=== PATIENT | male | born 1975 | race Caucasian/White ===

== ENCOUNTER 2016-10-01 08:20 | Emergency (ER) | payer OTHER ==
--- NOTE | ~2016-10-01 | CR243 ---
[facility] A Service of [facility] RADIOLOGY TEXT RESULTS PATIENT: RICHARD ANGEL LOCATION: [facility] : 79 UNIT #: [id number] AGE: [address]: Sayda Hernandez SEX: M ORDER DR: [id number] [facility] [address] [place], [place] [address] [id number] E MR#: [id number] Acc #: [id number] NAME: RICHARD ANGEL : 1975 SEX: M STUDY DATE/TIME: 10/01/2016 09:28 UNIT: [facility] ROOM: STUDY DESCRIPTION: CR Thoracic Spine 3 Views Attending Physician: Sayda Hernandez P.A.-C. Ordering Physician: Sayda Hernandez P.A.-C. Primary Care Physician: No Primary Care Physician MEDICAL IMAGING REPORT This report is preliminary unless electronic signature is present EXAM Thoracic spine series 10/01/2016 0928 hours CLINICAL HISTORY Patient complains of right-sided mid back pain since yesterday after lifting a box. COMPARISON None. FINDINGS AP and lateral views of the thoracic spine and a lateral swimmer's view of the cervical thoracic junction were performed. There is very mild rightward scoliosis in the mid thoracic spine with Brown angle of 10 degrees as measured from the superior endplate of T4 to the inferior endplate of T8. There is very minimal endplate spurring in the lower thoracic spine. There is no compression fracture or paraspinous hematoma. IMPRESSION There is mild rightward scoliosis in the mid thoracic spine with Brown angle of 10 degrees. There is mild endplate degenerative change in the lower thoracic spine. There is no fracture or subluxation. Dictated by... Diane Case M.D. THIS IS AN ELECTRONICALLY VERIFIED REPORT Diane Case M.D. at 10/01/2016 2:31 PM Liset TD: 10/01/2016 11:31 JOB #: [id number] [facility] A Service of [facility] RADIOLOGY TEXT RESULTS PATIENT: RICHARD ANGEL LOCATION: [facility] #: [id number] : 79 UNIT #: [id number] AGE: [address]: Sayda Hernandez SEX: M ORDER DR: MEDICAL IMAGING REPORT Page 1 of 1 COPY
== END 2016-10-01 10:08 | disposition home or self-care (01) ==
LOC: CED 08:20
DX: S23.3XXA Sprain of ligaments of thoracic spine, initial encounter (principal); F17.210 Nicotine dependence, cigarettes, uncomplicated; X50.9XXA Other and unspecified overexertion or strenuous movements or postures, initial encounter; Y93.89 Activity, other specified; Y92.69 Other specified industrial and construction area as the place of occurrence of the external cause; Y99.0 Civilian activity done for income or pay
CPT/HCPCS: 72072; 96372; 99283; J1885